=== PATIENT | female | born 1950 | race Caucasian/White ===

== ENCOUNTER 2020-12-06 05:46 | Inpatient (IN) ==
[2020-12-06] MEDS ORDERED: Lactated Ringers 1000 ml BAG 1,000 ML IV SCH (06:00)
[2020-12-06] MEDS ORDERED: Famotidine IV 10 MG/ML 2 ml VIAL (20 mg) IV ONE (06:00)
[2020-12-06] MEDS ORDERED: Buffered Lidocaine 1% SYRIN 1 ml INTRADERM ONE ×2 (06:00→06:15)
[2020-12-06] MEDS ORDERED: Famotidine IV 10 MG/ML 2 ml VIAL (20 mg) ONE (06:15)
[2020-12-06] MEDS ORDERED: ERTApenem 1 GM in NS 0.9% 50 ML 50 ML IVPB ONE (07:00)
[2020-12-06] MEDS ORDERED: Lidocaine 2% PF 5 ML VIAL ONE (07:14)
[2020-12-06] MEDS ORDERED: fentaNYL 100 mcg/2 ml 50 MCG/ML VIAL ONE (07:14)
[2020-12-06] MEDS ORDERED: Propofol 10 MG/ML 20 ML BTL ONE (07:14)
[2020-12-06] MEDS ORDERED: Dexamethasone IV 4 MG/ML VIAL 1 ml VIAL ONE (07:44)
[2020-12-06] MEDS ORDERED: Ondansetron 4 mg VIAL 2 MG/ML 2 ml VIAL ONE ×2 (07:44→12:03)
[2020-12-06] MEDS ORDERED: HYDROmorphone 1 MG/1 ML SYRINGE ONE (08:39)
[2020-12-06] MEDS ORDERED: fentaNYL 100 mcg/2 ml 50 MCG/ML VIAL IV PRN (09:40)
[2020-12-06] MEDS ORDERED: Naloxone 0.4 mg VIAL 0.4 mg/ml 1 ml VIAL IV PRN (09:40)
[2020-12-06] MEDS ORDERED: Ondansetron 4 mg VIAL 2 MG/ML 2 ml VIAL IV PRN (09:40)
[2020-12-06] MEDS ORDERED: EPHEDrine (Pressors) 50 MG/ML VIAL ONE (11:28)
[2020-12-06] MEDS ORDERED: Phenylephrine 40 mcg/mL 10mL (400mcg) SYRINGE ONE (11:28)
[2020-12-06] MEDS ORDERED: Acetaminophen IV 1 GM/100ML 100 ML ONE (11:39)
[2020-12-06] MEDS ORDERED: HYDROmorphone 1 MG/1 ML SYRINGE IV SLOW PU PRN (13:06)
[2020-12-06] MEDS ORDERED: Acetaminophen IV 1 GM/100ML 100 ML IVPB SCH (14:00)
[2020-12-06] MEDS: Lactated Ringers 1000 ml BAG 1,000 ML IV SCH (15:53)
[2020-12-06] MEDS: Acetaminophen IV 1 GM/100ML 100 ML IVPB SCH (20:20)
[2020-12-06] MEDS: Trospium 20 mg TAB (NF) PO SCH (21:29)
[2020-12-07] MEDS: Lactated Ringers 1000 ml BAG 1,000 ML IV SCH ×2 (02:01→15:33)
[2020-12-07] MEDS: Acetaminophen IV 1 GM/100ML 100 ML IVPB SCH ×2 (03:44→12:08)
[2020-12-07] MEDS: Heparin 5000 UNITS/ML 1 mL VIAL SUBCUT SCH ×3 (06:28→21:29)
[2020-12-07] MEDS ORDERED: Dextran 70/Hypromellose Tears Eye Drops 15 ml BTL (for Artificials Tears) BOTH EYES PRN (12:24)
[2020-12-07] MEDS: Vitamin THERAPEUTIC TAB PO SCH (14:35)
[2020-12-07] MEDS: CMC:Venlafaxine 25 mg TAB (NF) PO SCH (21:27)
[2020-12-07] MEDS: Trospium 20 mg TAB (NF) PO SCH (21:29)
[2020-12-08] MEDS: Lactated Ringers 1000 ml BAG 1,000 ML IV SCH (03:06)
[2020-12-08] MEDS: Heparin 5000 UNITS/ML 1 mL VIAL SUBCUT SCH (06:37)
[2020-12-08 06:46] LABS: Hematocrit 37 % (35-47); Hemoglobin 12.5 g/dL (12.0-16.0); Mean Corpuscular HGB Conc 34 g/dL (31-36); Mean Corpuscular Hemoglobin 34 pg (27-31); Mean Corpuscular Volume 100 fL (80-97); Mean Platelet Volume 8.9 fL (7.4-10.4); Platelet Count 206 10^3/uL (150-450); Red Blood Count 3.68 10^6 /uL (3.70-4.87); Red Cell Distribution Width 13 % (10-15); White Blood Count 5.9 10^3/uL (3.5-10.8)
[2020-12-08] MEDS: Vitamin THERAPEUTIC TAB PO SCH (09:41)
[2020-12-08] MEDS: CMC:Venlafaxine 25 mg TAB (NF) PO SCH (09:41)
[2020-12-08 11:32] VITALS: BP 144/77
== END 2020-12-08 15:20 | disposition home or self-care (01) | DRG 983 ==
LOC: AA 05:46 → SSU 15:48
PROVIDERS: ADMIT Surgery; ATTEND Surgery

== ENCOUNTER 2020-12-12 17:46 | Inpatient (IN) ==
[2020-12-12] MEDS ORDERED: NS 0.9% 1000 ml BAG 1,000 ML IV ONE (23:37)
[2020-12-13 00:13] LABS: ABS Eosinophils 0.3 10^3/ul (0-0.6); ABS Lymphocytes 1.4 10^3/ul (1.0-4.8); ABS Monocytes 0.5 10^3/ul (0-0.8); Eosinophil % 5.5 %; Hematocrit 39 % (35-47); Hemoglobin 13.1 g/dL (12.0-16.0); Lymphocyte % 21.8 %; Mean Corpuscular HGB Conc 34 g/dL (31-36); Mean Corpuscular Hemoglobin 34 pg (27-31); Mean Corpuscular Volume 100 fL (80-97); Mean Platelet Volume 8.2 fL (7.4-10.4); Platelet Count 298 10^3/uL (150-450); Red Blood Count 3.87 10^6 /uL (3.70-4.87); Red Cell Distribution Width 13 % (10-15); White Blood Count 6.3 10^3/uL (3.5-10.8)
[2020-12-13 00:29] LABS: ALT 49 U/L (7-52); Albumin 3.7 g/dL (3.2-5.2); Albumin/Globulin Ratio 1.3 (1-3); Alkaline Phosphatase 77 U/L (35-149); Blood Urea Nitrogen 18 mg/dL (6-24); C Reactive Protein 7.77 mg/L (<8.01); CO2 Carbon Dioxide 27 mmol/L (22-32); Calcium 8.8 mg/dL (8.6-10.3); Chloride 105 mmol/L (101-111); EGFR African American 175.1 (>60); EGFR Non-African American 144.7 (>60); Globulin 2.8 g/dL (2-4); Glucose 104 mg/dL (70-100); Lipase 21 U/L (11.0-82.0); Sodium 138 mmol/L (135-145); Total Protein 6.5 g/dL (6.4-8.9)
[2020-12-13 00:31] LABS: Anion Gap 6 mmol/L (2-11)
[2020-12-13] MEDS ORDERED: Iohexol 300 (CONTRAST) 10 ML SDV IV ONE (00:39)
[2020-12-13 01:55] LABS: Potassium Redraw 3.3 mmol/L (3.5-5.0)
[2020-12-13 02:03] LABS: Urine Appearance Clear; Urine Bilirubin Negative (Negative); Urine Blood Negative (Negative); Urine Color Yellow; Urine Glucose Negative (Negative); Urine Ketones 1+ (Negative); Urine Nitrite Negative (Negative); Urine Protein Negative (Negative); Urine Specific Gravity 1.034 (1.002-1.030); Urine Urobilinogen Negative (Negative)
[2020-12-13] MEDS ORDERED: Ondansetron 4 mg VIAL 2 MG/ML 2 ml VIAL IV PRN (03:36)
[2020-12-13] MEDS: NS 0.9% 1000 ml BAG 1,000 ML IV SCH ×2 (04:06→07:39)
[2020-12-13] MEDS ORDERED: KCL 20 MEQ/100 ML IVPREMIX 20 MEQ/100 ML BAG IV ONE (04:37)
[2020-12-13] MEDS ORDERED: Dextran 70/Hypromellose Tears Eye Drops 15 ml BTL (for Artificials Tears) BOTH EYES PRN (04:39)
[2020-12-13 04:59] LABS: Magnesium 2.1 mg/dL (1.9-2.7)
[2020-12-13] MEDS ORDERED: Heparin 5000 UNITS/ML 1 mL VIAL SUBCUT SCH (09:00)
[2020-12-13] MEDS: Heparin 5000 UNITS/ML 1 mL VIAL SUBCUT SCH ×2 (09:31→21:35)
[2020-12-13] MEDS: CMC:Venlafaxine 25 mg TAB (NF) PO SCH ×2 (09:32→21:40)
[2020-12-13] MEDS ORDERED: Senna TAB 8.6 mg TAB PO PRN (16:19)
[2020-12-13] MEDS ORDERED: Polyethylene Glycol 3350 17 GM PACKET PO PRN (16:19)
[2020-12-13] MEDS: Magnesium Hydroxide LIQ 30 ML UDC PO PRN (21:37)
[2020-12-13] MEDS: Trospium 20 mg TAB (NF) PO SCH (21:41)
[2020-12-14 08:57] LABS: ABS Basophils 0.1 10^3/ul (0-0.2); ABS Eosinophils 0.2 10^3/ul (0-0.6); ABS Lymphocytes 1.3 10^3/ul (1.0-4.8); ABS Monocytes 0.5 10^3/ul (0-0.8); ABS Neutrophils 2.8 10^3/ul (1.5-7.7); Eosinophil % 4.8 %; Hematocrit 38 % (35-47); Hemoglobin 13.1 g/dL (12.0-16.0); Lymphocyte % 27.5 %; Mean Corpuscular HGB Conc 34 g/dL (31-36); Mean Corpuscular Hemoglobin 34 pg (27-31); Mean Corpuscular Volume 100 fL (80-97); Mean Platelet Volume 8.1 fL (7.4-10.4); Platelet Count 299 10^3/uL (150-450); Red Blood Count 3.81 10^6 /uL (3.70-4.87); Red Cell Distribution Width 13 % (10-15); White Blood Count 4.9 10^3/uL (3.5-10.8)
[2020-12-14 09:20] LABS: Calcium 8.9 mg/dL (8.6-10.3); EGFR African American 150.6 (>60); EGFR Non-African American 124.5 (>60); Magnesium 2.3 mg/dL (1.9-2.7); Potassium 3.8 mmol/L (3.5-5.0)
[2020-12-14] MEDS: Heparin 5000 UNITS/ML 1 mL VIAL SUBCUT SCH ×2 (09:55→20:42)
[2020-12-14] MEDS: CMC:Venlafaxine 25 mg TAB (NF) PO SCH ×2 (09:56→20:42)
[2020-12-14] MEDS: Trospium 20 mg TAB (NF) PO SCH (20:43)
[2020-12-15] MEDS: Heparin 5000 UNITS/ML 1 mL VIAL SUBCUT SCH ×2 (09:41→21:13)
[2020-12-15] MEDS: CMC:Venlafaxine 25 mg TAB (NF) PO SCH ×2 (10:11→21:13)
[2020-12-15] MEDS ORDERED: Midazolam 10 mg/10 ml VIAL 1 mg/ml 10 ml VIAL (10 mg) ONE (13:25)
[2020-12-15] MEDS: Trospium 20 mg TAB (NF) PO SCH (21:10)
[2020-12-16] MEDS: Heparin 5000 UNITS/ML 1 mL VIAL SUBCUT SCH ×2 (08:06→20:35)
[2020-12-16] MEDS: CMC:Venlafaxine 25 mg TAB (NF) PO SCH ×2 (08:06→21:35)
[2020-12-16] MEDS: Polyethylene Glycol 3350 17 GM PACKET PO SCH ×2 (14:13→20:35)
[2020-12-16] MEDS: Trospium 20 mg TAB (NF) PO SCH (20:35)
[2020-12-16] MEDS ORDERED: Senna TAB 8.6 mg TAB PO SCH (21:00)
[2020-12-17 05:58] LABS: ABS Eosinophils 0.2 10^3/ul (0-0.6); ABS Lymphocytes 1.7 10^3/ul (1.0-4.8); ABS Monocytes 0.5 10^3/ul (0-0.8); ABS Neutrophils 2.1 10^3/ul (1.5-7.7); Eosinophil % 5.5 %; Hematocrit 38 % (35-47); Hemoglobin 13.1 g/dL (12.0-16.0); Mean Corpuscular HGB Conc 34 g/dL (31-36); Mean Corpuscular Hemoglobin 34 pg (27-31); Mean Corpuscular Volume 100 fL (80-97); Mean Platelet Volume 8.3 fL (7.4-10.4); Platelet Count 326 10^3/uL (150-450); Red Blood Count 3.82 10^6 /uL (3.70-4.87); Red Cell Distribution Width 13 % (10-15); White Blood Count 4.5 10^3/uL (3.5-10.8)
[2020-12-17 06:18] LABS: EGFR African American 175.1 (>60); EGFR Non-African American 144.7 (>60); Magnesium 2.2 mg/dL (1.9-2.7); Potassium 3.7 mmol/L (3.5-5.0)
[2020-12-17] MEDS: CMC:Venlafaxine 25 mg TAB (NF) PO SCH (09:12)
[2020-12-17] MEDS: Polyethylene Glycol 3350 17 GM PACKET PO SCH ×2 (09:12→09:21)
[2020-12-17] MEDS: Heparin 5000 UNITS/ML 1 mL VIAL SUBCUT SCH (09:13)
[2020-12-17] MEDS: Magnesium Hydroxide LIQ 30 ML UDC PO PRN (09:21)
[2020-12-17 16:25] VITALS: BP 111/56
== END 2020-12-17 14:00 | disposition home or self-care (01) | DRG 390 ==
LOC: ED 17:46 → SSU 12-13 03:36 → MED 12-16 01:57
PROVIDERS: ADMIT Student in an Organized Health Care Education/Training Program; ATTEND Student in an Organized Health Care Education/Training Program